=== PATIENT | female | born 1940 | race Caucasian/White ===

== ENCOUNTER → 2016-11-27 | Outpatient (CLI) | payer OTHER ==
[~2016-11-27] MED LIST: ASPIRIN EC81 M1 PO; ASPIRIN325 PO; AUGMENTIN 500-1 EACH PO; CARDIZEM CD300 MG PO; CARTIA PO; COUMADIN 2.5MG2.5 M1 PO; COUMADIN 5 MG TA5 M1 PO; DILTIAZEM 24HR300 M1 PO; HYDROCHLOROTHIA25 M1 PO; KLOR-CON 10 ER10 MEQ PO; LANOXIN 0.250.25 M1 PO; LORTAB 5 MG/5001 TA1 PO; PLAVIX 75 MG TA75 MG PO; QUINAPRIL 20 MG20 MG PO; SIMVASTATIN40 MG PO
== END ==
LOC: RAD 09:35
DX: M47.896 Other spondylosis, lumbar region (principal); M51.36 Other intervertebral disc degeneration, lumbar region

== ENCOUNTER 2017-01-01 08:46 | Emergency (ER) | payer OTHER ==
[~2017-01-01] VITALS: Ht 162.6 cm; Wt 63.5 kg
[2017-01-01 09:12] LABS: HEMATOCRIT 49.9 % (37.0-47.0); HEMOGLOBIN 16.5 gm/dL (12.0-15.0); MCH 30.2 pg (26.0-34.0); MCV 91.5 fL (80.0-100.0); RBC 5.45 mil/uL (4.20-5.00); RDW 16.1 % (10.5-14.5)
[2017-01-01 09:29] LABS: APTT 32.1 Seconds (24.5-32.8); INR 2.1; PROTIME 20.1 Seconds (9.3-11.4)
[2017-01-01 10:42] VITALS: BP 132/85
== END 2017-01-01 10:43 | disposition home or self-care (01) ==
LOC: ER 08:46
PROVIDERS: Nurse Practitioner
DX: S20.211A Contusion of right front wall of thorax, initial encounter (principal); I10 Essential (primary) hypertension; I48.91 Unspecified atrial fibrillation; E78.5 Hyperlipidemia, unspecified; I25.10 Atherosclerotic heart disease of native coronary artery without angina pectoris; Z90.710 Acquired absence of both cervix and uterus; Z85.41 Personal history of malignant neoplasm of cervix uteri; W01.0XXA Fall on same level from slipping, tripping and stumbling without subsequent striking against object, initial encounter; Y93.89 Activity, other specified; Y92.480 Sidewalk as the place of occurrence of the external cause; Y99.8 Other external cause status

== ENCOUNTER → 2017-06-16 | Outpatient (CLI) | payer OTHER ==
[~2017-06-16] VITALS: Ht 170.2 cm; Wt 66.7 kg
[~2017-06-16] MED LIST changes: +ATORVASTATIN CA40 MG PO
--- NOTE | ~2017-06-16 | CRIT ---
[facility] [place] [address] CRITICAL CARE NOTE Name: MARIANELA CALLAWAY Room #: REG [facility].#: [id number] Admission: 06/16/17 Attend Phys: Romeo Kwok MD Discharge: Date of : 40 Report #: [id number] THIS REPORT FOR: //name// CC: Nino Simmons MD [facility] Romeo Kwok DATE OF SERVICE: 06/16/2017 DATE OF REGISTRATION: 06/16/2017 CHIEF COMPLAINT: Low back pain. HISTORY OF PRESENT ILLNESS: The patient is a samir 77-year-old I am seeing today at the request of Dr. Charbel Simmons. The patient is also followed by Dr. Nino Ortiz as primary care. Dr. Simmons suggest we might be able to help her with her low back difficulty. Over the last 3-4 years, she has had more and more trouble with her low back and difficulty standing upright. It is generally worse when she first gets up in the morning and even after a hot shower and walking, she has pain that she scores between 6 and 8/10. She gets her best relief when she simply lays flat in the bed or after she is out of a hot shower. Years ago, she tried chiropractic and she has had a previous epidural without much benefit, but it has been years. She denies any significant leg pain. She is on Coumadin for atrial fibrillation. MEDICATIONS: Diltiazem, potassium, hydrochlorothiazide, quinapril, atorvastatin, Coumadin, and aspirin. ALLERGIES: None. SHE DOES HAVE SOME SENSITIVITIES TO TRAMADOL, CODEINE AND HYDROCODONE, ALL OF WHICH CAUSE NAUSEA AND VOMITING. PAST MEDICAL AND SURGICAL HISTORY: Significant for rheumatic fever as a child. She has an atrial septal defect, which is noted about 7 years ago. She has atrial fibrillation. She had cervical cancer years ago and was treated with a hysterectomy. She believes it may have been as long as 50 years ago. She has had a cholecystectomy, right coronary artery stent, Amplatzer occluder for her atrial septal defect in 2010 and a stent placed in her right renal artery. SOCIAL HISTORY: She is , continues to smoke about half a pack a day and has done so for 50 years. She denies use of alcohol. She reports to me that she will probably continue smoking until she can no longer light up. I did discuss with her the risks of smoking. I am certain I am the first physician to do that with her. [address] [address] CRITICAL CARE NOTE Name: MARIANELA CALLAWAY Room #: REG [facility]#: [id number] Admission: 06/16/17 Attend Phys: Romeo Kwok MD Discharge: Date of : 40 Report #: [id number] REVIEW OF SYSTEMS: Completed and discussed with the patient. She describes some blurred visions, cataracts, fatigue, weakness, nausea and vomiting with pain pills, nocturia and dribbling, occasional wheezing, bleeding and bruising tendency and she does describe some numbness in the buttock region, which may be radicular numbness. Most of her problems, however, pain across the low back. PHYSICAL EXAMINATION: She is pleasant samir 77-year-old, alert and oriented without signs of confusion, disorientation or anxiety or dementia. She moves from sitting to standing position and does indeed have difficulty standing upright and straight. She walks with a stable gait. She does not appear to be a fall risk. She has pain with forward flexion, but more pain with back extension, lateral tilt and rotation. Pain is across the lumbosacral segment at the level of the iliac crest consistent with the L3-L4, L4-L5 and L5-S1 lumbar facets. It is bilaterally tender. There is no tenderness of the sacroiliac joints. Straight leg raising is negative for radicular symptoms. Sensation is intact. Deep tendon reflexes are absent at knees and ankle. Chest was clear without inspiratory or expiratory wheezing. Cardiac rhythm was irregularly irregular. IMAGING: X-rays show lumbar spondylosis throughout the lumbar spine. IMPRESSION: Lumbar spondylosis with axial back pain. No evidence of radiculopathy. RECOMMENDATION: I think she would benefit from some lumbar facet injections. I would suggest that we do a small amount of triamcinolone into the L3-L4, L4-L5 and L5-S1 facet joints as able. We can perform these under x-ray guidance. A small amount of local anesthetic can also be injected at that time on the medial branch nerves. I think this will be diagnostic. She might be a candidate down the road for radiofrequency ablation depending on how her targets anatomically appear on the x-ray. Success is decreased when these targets are poorly visualized. Followup visit is scheduled. The patient in a few days she is going to stop her Coumadin in anticipation of the injection. Questions were asked and answered. By: [id number] Romeo Kwok MD /nt
[2017-06-16 14:37] VITALS: BP 123/64
== END ==
LOC: PAIN 07:25
DX: M47.896 Other spondylosis, lumbar region (principal); Z88.6 Allergy status to analgesic agent; Z88.5 Allergy status to narcotic agent

== ENCOUNTER → 2017-06-19 | Outpatient (CLI) | payer OTHER ==
[~2017-06-19] VITALS: Ht 170.2 cm; Wt 66.8 kg
--- NOTE | ~2017-06-19 | HPC ---
[facility] [place] [address] PAIN MANAGEMENT CONSULTATION Name: CALLAWAYMARIANELA Room #: REG Lyndsey Suarez#: [id number] Admission: 06/19/17 Attend Phys: Romeo Kwok MD Discharge: Date of : 40 Report #: [id number] THIS REPORT FOR: //name// CC: Nino Kwok DATE OF SERVICE: 06/19/2017 Followup visit for lumbar spondylosis. The patient was seen just last week. She was on Coumadin and we required a preauthorization for her treatment. She has clear evidence of lumbar spondylitic changes across the lumbosacral spine and most of her pain is axial back pain. She has minimal symptoms of radiculopathy. She has an x-ray also which shows that there is a levorotoscoliosis in the lumbosacral region, which results in advanced degenerative changes. I have suggested facet injections today and medial branch nerve blocks and we will evaluate her response to these treatments. She may be a candidate for more aggressive facet treatments. Radiofrequency was mentioned at her last visit. We have also had patients who have responded favorably to epidural injections for this condition. Our plan is to inject the three lowest facet joints today with triamcinolone and see her back in the clinic. I would not hesitate to perform an epidural injection if she does not respond favorably to facet based treatments. Medical history, medication, allergies were all reviewed from her visit just one week ago. There have been no changes. PHYSICAL EXAMINATION: Today, blood pressure 104/74, heart rate 84 and respirations 16. She is afebrile. She moves slowly from sitting to standing and has difficulty straightening up. She has pain across her low back and localized tenderness. Pain is increased with back extension. She has no leg pain. Pain today is at the level of the iliac crest and below. She has tenderness bilaterally. 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 RECOMMENDATION: Facet injections at L3-L4, L4-L5 and L5-S1 bilaterally under fluoroscopic guidance. PROCEDURE: After informed consent, she was taken to the fluoroscopic suite, placed prone, skin prepped with ChloraPrep. Skin was first anesthetized on the left overlying the above-mentioned joints. Skin was anesthetized with 1% [address] [address] PAIN MANAGEMENT CONSULTATION Name: MARIANELA CALLAWAY Room #: REG DERRICK Suarez#: [id number] Admission: 06/19/17 Attend Phys: Romeo wKok MD Discharge: Date of : 40 Report #: [id number] lidocaine and then 25-gauge 3-1/2 inch needles were advanced into the joints at each of the levels described. After negative aspiration, I injected each joint with 1 mL of 0.5% bupivacaine mixed with 10 mg of triamcinolone. She tolerated the injections well. C-arm was moved to the right and mirror image injections were performed at that side. A total of 6 injections were performed with a total of 60 mg of triamcinolone. She tolerated the procedure well. Pain was reduced only by about 20% in the recovery room. We will see her back in 2-4 weeks and we will consider the possibility of an epidural injection if not improved. By: [id number] Romeo Kwok MD /nt
[2017-06-19 14:35] LABS: INR 1.1; PROTIME 11.4 Seconds (9.3-11.4)
[2017-06-19 14:44] VITALS: BP 104/74
== END | disposition home or self-care (01) ==
LOC: PAIN 07:25
PROVIDERS: Anesthesiology Pain Medicine
DX: M47.817 Spondylosis without myelopathy or radiculopathy, lumbosacral region (principal); M41.86 Other forms of scoliosis, lumbar region; M51.36 Other intervertebral disc degeneration, lumbar region; M46.96 Unspecified inflammatory spondylopathy, lumbar region; F17.210 Nicotine dependence, cigarettes, uncomplicated; Z79.01 Long term (current) use of anticoagulants; Z79.82 Long term (current) use of aspirin; Z79.899 Other long term (current) drug therapy

== ENCOUNTER 2017-07-30 10:00 | Inpatient (IN) | payer OTHER ==
[~2017-07-30] VITALS: Ht 170.2 cm; Wt 64.0 kg
--- NOTE | ~2017-07-30 | D ---
[facility] [place] [address] DISCHARGE SUMMARY Name: CALLAWAYMARIANELA TURK Room #: 450-P [facility] IN ..#: [id number] Admission: 07/30/17 Attend Phys: George Daniels MD Discharge: 08/05/17 Date of : 40 Report #: [id number] THIS REPORT FOR: //name// CC: Davonte Daniels DATE OF SERVICE: 08/05/2017 FINAL DIAGNOSES: 1. Clostridium difficile colitis. 2. Hypertension. 3. Atrial fibrillation. HOSPITAL COURSE: The patient was admitted with abdominal pain and diarrhea and CT revealed diffuse colitis. Stool studies were positive for C. diff. She was placed on vancomycin. She had slow improvement and recovery. A stool culture was also obtained, which was positive for Campylobacter. It was unclear etiology. She had no predisposing factors. ID Service elected to treat her with Zithromax to finish a 5-day treatment. Gradually, her abdominal symptoms resolved, her diarrhea resolved and she was having formed stools by the time of discharge. PHYSICAL EXAMINATION: GENERAL: On the day of discharge, she was awake and alert. VITAL SIGNS: Stable. LUNGS: Clear. HEART: Regular. ABDOMEN: Soft. Normoactive bowel sounds. EXTREMITIES: No edema. DISPOSITION: She will be discharged to home with diet and activity as tolerated; resume all home medications, with the exception of holding hydrochlorothiazide and potassium for now due to hypokalemia and mild hypotension on admit. She will stay on vancomycin for 14 days and to follow up in the office for further instructions on continued slow taper. She will also need a followup with outpatient appointment with Dr. Valerio regarding the diverticulitis from last admission. <ELECTRONICALLY SIGNED> By: George Daniels MD 08/07/17 1028 0956 1039 George Daniels MD /nt
--- NOTE | ~2017-07-30 | EKG ---
[address] [place] [place] [address] ELECTROCARDIOGRAM REPORT Name: MARIANELA CALLAWAY Room #: 416-P [facility] [place] ..#: [id number] Admission: 07/30/17 Attend Phys: George Daniels MD Discharge: Date of : 40 Report #: [id number] THIS REPORT FOR: //name// [facility] ED Test Date: 2017-07-30 Test Time: 10:19:18 Pat Name: MARIANELA CALLAWAY Department: Room: Gender: F Golf [employer]: MACI : 1940 Requested By: Dedrick Mcleod Order Number: [id number] MD: Bharath Tyler Measurements Intervals Vidal Rate: 117 P: RI: QRS: 101 QRSD: 102 T: 33 QT: 325 QTc: 454 Interpretive Statements Atrial fibrillation Left posterior fascicular block Borderline low voltage, extremity leads Minimal ST depression, lateral leads Compared to ECG 07/04/2017 11:58:02 Left posterior fascicular block now present ST (T wave) deviation now present Right-axis deviation no longer present Electronically Signed On 07-30-2017 16:56:37 CDT by Bharath Tyler [email or web address] <ELECTRONICALLY SIGNED> By: Bharath Tyler MD 07/30/17 1656 1019 1019 Bharath Tyler MD /EPI
--- NOTE | ~2017-07-30 | H ---
[facility] [place] [address] HISTORY AND PHYSICAL Name: MARIANELA CALLAWAY Room #: 416-P [facility] IN ..#: [id number] Admission: 07/30/17 Attend Phys: George Daniels MD Discharge: Date of : 40 Report #: [id number] THIS REPORT FOR: //name// CC: Davonte Daniels DATE OF SERVICE: 07/30/2017 CHIEF COMPLAINT: Abdominal pain and diarrhea. HISTORY OF PRESENT ILLNESS: The patient is a 77-year-old female who came back to the Emergency Room with a 3-day history of abdominal pain and diarrhea. She has had multiple loose watery stools, some with a foul odor, for the last few days. She has had crampy waves of abdominal pain in the lower quadrant and sometimes into the left flank. She has had no nausea, vomiting or fever. She was hospitalized about a month ago for diverticular abscess and received Cipro and Flagyl at that time. She said upon completion of that round of antibiotics that her abdominal symptoms resolved and she was feeling fairly well. These new symptoms began about 3 days ago. PAST MEDICAL HISTORY: Atrial fibrillation, chronic Coumadin use, hypertension, history of atrial septal defect, lumbar spinal stenosis, cervical cancer, coronary artery disease with a history of right coronary stent. PAST SURGICAL HISTORY: She has had hysterectomy, left femur fracture repair. FAMILY HISTORY: Noncontributory. SOCIAL HISTORY: Some tobacco use. No chronic alcohol use. ALLERGIES: TRAMADOL. MEDICATIONS: Aspirin, hydrochlorothiazide, Cardizem-CD, Accupril, potassium, Coumadin 4 mg, Lipitor. REVIEW OF SYSTEMS: She denies headache, chest pain, shortness of breath, dysuria, myalgias, without a syncope or fall. OBJECTIVE: VITAL SIGNS: Temperature 37.2, pulse 111, respirations 21, blood pressure 130/80, O2 sat 98% on room air. GENERAL: She is awake and alert, in no distress. HEAD AND NECK: Unremarkable. LUNGS: Clear. HEART: Irregular. ABDOMEN: Soft, protuberant, scattered bowel sounds. Slightly tender to [facility] [address] [place] [address] HISTORY AND PHYSICAL Name: ANA MARIA CALLAWAYN Cam Room #: 416-P [facility].#: [id number] Admission: 07/30/17 Attend Phys: George Daniels MD Discharge: Date of : 40 Report #: [id number] palpation in left flank. No rebound or guarding. EXTREMITIES: No cyanosis, clubbing or edema. NEUROLOGIC: Intact. LABORATORY DATA: Reviewed. White count is normal. CT of the abdomen reveals colonic wall thickening suggesting colitis. 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 There is a diverticulum in the sigmoid colon that is similar to prior study and an indeterminate left lobe hepatic lesion. ASSESSMENT: 1. Acute colitis. 2. Diverticulosis. 3. Chronic atrial fibrillation. 4. Chronic anticoagulation with Coumadin. PLAN: Working diagnosis at this point is to rule out Clostridium difficile colitis and treatment will be focused on Flagyl and vancomycin. Bowel rest tonight with clear liquids, IV fluid, supportive measures and advance as tolerated. <ELECTRONICALLY SIGNED> By: George Daniels MD 07/31/17 1110 1434 1550 George Daniels MD /nt
[~2017-07-30 10:00] MED LIST changes: +CIPRO500 MG PO; +FLAGYL500 MG PO
[2017-07-30 10:09] VITALS: BP 116/44
[2017-07-30 10:37] LABS: ABSOLUTE NEUTROPHILS 6.9 thou/uL (1.4-8.2); BASOPHILS 0.5 % (0.0-2.0); EOSINOPHILS 0.3 % (0.0-3.0); HEMATOCRIT 45.6 % (37.0-47.0); HEMOGLOBIN 15.5 gm/dL (12.0-15.0); LYMPHOCYTES 7.9 % (24.0-44.0); MCH 31.5 pg (26.0-34.0); MCHC 33.9 g/dL (28.0-37.0); MCV 92.8 fL (80.0-100.0); MONOCYTES 9.9 % (1.0-8.0); PLATELET COUNT 184 thou/uL (150-400); POLYS 81.4 % (36.0-66.0); RBC 4.92 mil/uL (4.20-5.00); RDW 15.9 % (10.5-14.5); WBC 8.5 thou/uL (4.0-11.0)
[2017-07-30 10:44] LABS: ANION GAP 8 mmol/L (7-16); BUN 10 mg/dL (7-18); CALCIUM 8.8 mg/dL (8.5-10.1); CHLORIDE 100 mmol/L (98-107); CO2 26 mmol/L (21-32); CREATININE 0.9 mg/dL (0.6-1.0); GLUCOSE 98 mg/dL (74-106); POTASSIUM 3.3 mmol/L (3.5-5.1); SODIUM 134 mmol/L (136-145)
[2017-07-30 10:53] LABS: ALBUMIN 2.8 g/dL (3.4-5.0); DIRECT BILIRUBIN 0.3 mg/dL (<0.1-0.3); LIPASE 135 U/L (73-393); SGOT 21 U/L (15-37); SGPT 26 U/L (30-65); TOTAL PROTEIN 6.5 g/dL (6.4-8.2); TROPONIN-I < 0.04 ng/mL (<0.06)
[2017-07-30 12:02] LABS: URINE BILIRUBIN NEGATIVE (Negative); URINE BLOOD 1+ (Negative); URINE CLARITY SL CLOUDY; URINE COLOR YELLOW; URINE GLUCOSE-RANDOM* NEGATIVE (Negative); URINE KETONES TRACE (Negative); URINE LEUKOCYTES NEGATIVE (Negative); URINE NITRITE NEGATIVE (Negative); URINE PROTEIN (DIPSTICK) NEGATIVE (Negative); URINE UROBILINOGEN 0.2 E.U./dl (0.2-1.0)
[2017-07-30 12:44] LABS: CASTS None Seen /LPF (None Seen); CRYSTALS None Seen /LPF (None Seen); SQUAMOUS >10 Many /LPF (0-3)
[2017-07-30 12:45] LABS: URINE RBC 0-2 Rare /HPF (0-2); URINE WBC 0-5 Rare /HPF (0-5)
[2017-07-30 12:46] LABS: BACTERIA 1-9 Few /HPF (None Seen)
[2017-07-30 13:29] VITALS: BP 130/80
[2017-07-30 14:03] LABS: APTT 32.9 Seconds (24.5-32.8); INR 1.6; PROTIME 15.9 Seconds (9.3-11.4)
[2017-07-30 14:44] VITALS: BP 121/77
[2017-07-30 14:48] VITALS: BP 138/94
[2017-07-30 20:13] VITALS: BP 130/86
[2017-07-30 23:32] VITALS: BP 128/84
[2017-07-31 04:04] VITALS: BP 129/86
[2017-07-31 06:07] LABS: HEMATOCRIT 42.1 % (37.0-47.0); HEMOGLOBIN 14.1 gm/dL (12.0-15.0); MCH 31.4 pg (26.0-34.0); MCHC 33.5 g/dL (28.0-37.0); MCV 93.7 fL (80.0-100.0); RBC 4.49 mil/uL (4.20-5.00); RDW 16.1 % (10.5-14.5); WBC 7.7 thou/uL (4.0-11.0)
[2017-07-31 06:18] LABS: INR 1.9; PROTIME 19.5 Seconds (9.3-11.4)
[2017-07-31 06:19] LABS: CALCIUM 8.2 mg/dL (8.5-10.1); CREATININE 0.6 mg/dL (0.6-1.0); POTASSIUM 3.2 mmol/L (3.5-5.1)
[2017-07-31 08:22] VITALS: BP 131/93
[2017-07-31 16:00] VITALS: BP 107/73
[2017-07-31 20:36] VITALS: BP 90/55
[2017-08-01 05:24] VITALS: BP 116/80
[2017-08-01 06:53] LABS: CALCIUM 8.5 mg/dL (8.5-10.1); CREATININE 0.6 mg/dL (0.6-1.0); POTASSIUM 4.5 mmol/L (3.5-5.1)
[2017-08-01 07:38] VITALS: BP 123/84
[2017-08-01 15:30] LABS: INR 2.3; PROTIME 23.5 Seconds (9.3-11.4)
[2017-08-01 16:43] VITALS: BP 108/74
[2017-08-01 21:22] VITALS: BP 99/63
[2017-08-02 05:31] VITALS: BP 130/80
[2017-08-02 07:20] VITALS: BP 130/76
[2017-08-02 14:56] LABS: INR 2.8; PROTIME 27.9 Seconds (9.3-11.4)
[2017-08-02 19:21] VITALS: BP 113/60
[2017-08-03 03:40] VITALS: BP 137/93
[2017-08-03 08:36] VITALS: BP 132/75
[2017-08-03 14:59] LABS: INR 3.5; PROTIME 34.8 Seconds (9.3-11.4)
[2017-08-03 16:05] VITALS: BP 132/75
[2017-08-03 19:55] VITALS: BP 107/61
[2017-08-04 03:57] VITALS: BP 140/82
[2017-08-04 04:05] LABS: ABSOLUTE NEUTROPHILS 5.2 thou/uL (1.4-8.2); BASOPHILS 0.6 % (0.0-2.0); EOSINOPHILS 1.2 % (0.0-3.0); HEMATOCRIT 40.5 % (37.0-47.0); HEMOGLOBIN 13.5 gm/dL (12.0-15.0); LYMPHOCYTES 16.5 % (24.0-44.0); MCH 31.4 pg (26.0-34.0); MCHC 33.2 g/dL (28.0-37.0); MCV 94.6 fL (80.0-100.0); MONOCYTES 10.8 % (1.0-8.0); PLATELET COUNT 211 thou/uL (150-400); POLYS 70.9 % (36.0-66.0); RBC 4.29 mil/uL (4.20-5.00); RDW 16.3 % (10.5-14.5); WBC 7.4 thou/uL (4.0-11.0)
[2017-08-04 04:15] LABS: INR 3.6; PROTIME 36.3 Seconds (9.3-11.4)
[2017-08-04 04:22] LABS: CALCIUM 8.5 mg/dL (8.5-10.1); CREATININE 0.7 mg/dL (0.6-1.0); MAGNESIUM 1.6 mg/dL (1.8-2.4); POTASSIUM 4.5 mmol/L (3.5-5.1)
[2017-08-04 08:00] VITALS: BP 141/93
[2017-08-04 16:00] VITALS: BP 99/58
[2017-08-04 19:33] VITALS: BP 100/63
[2017-08-05 04:56] VITALS: BP 116/75
[2017-08-05 08:00] VITALS: BP 118/77
[2017-08-05] MEDS ORDERED: VANCOMYCIN HCL10 GM PO (09:51)
[2017-08-05] MEDS ORDERED: AZITHROMYCIN 2250 MG PO (09:51)
[2017-08-05] MEDS ORDERED: PROBIOTIC1 EAC1 PO (09:52)
[2017-08-05 09:57] VITALS: BP 118/77
== END 2017-08-05 13:43 | disposition home or self-care (01) | DRG 371 ==
LOC: ER 10:00 → 4N 13:21 → 4W 08-02 14:16 → ENTRNSPT 08-05 13:02 → 4W 08-05 13:43
PROVIDERS: Emergency Medicine; Internal Medicine Geriatric Medicine; Nurse Practitioner
DX: A04.71 Enterocolitis due to Clostridium difficile, recurrent (principal); E43 Unspecified severe protein-calorie malnutrition; A04.5 Campylobacter enteritis; I10 Essential (primary) hypertension; I48.2 Chronic atrial fibrillation; K57.90 Diverticulosis of intestine, part unspecified, without perforation or abscess without bleeding; E78.5 Hyperlipidemia, unspecified; F17.210 Nicotine dependence, cigarettes, uncomplicated; E87.6 Hypokalemia; I25.10 Atherosclerotic heart disease of native coronary artery without angina pectoris; I95.9 Hypotension, unspecified; J44.9 Chronic obstructive pulmonary disease, unspecified; Z95.5 Presence of coronary angioplasty implant and graft; Z90.710 Acquired absence of both cervix and uterus; Z88.8 Allergy status to other drugs, medicaments and biological substances; Z79.01 Long term (current) use of anticoagulants; Z85.41 Personal history of malignant neoplasm of cervix uteri; Z79.899 Other long term (current) drug therapy; Z79.82 Long term (current) use of aspirin
CPT/HCPCS: 10047; 10790

== ENCOUNTER → 2018-11-12 | Outpatient (CLI) | payer OTHER ==
[~2018-11-12] VITALS: Ht 170.2 cm; Wt 64.4 kg
[~2018-11-12] MED LIST changes: +AZITHROMYCIN 2250 MG PO; +HYDROCHLOROTHIA25 M2 PO; +PROBIOTIC1 EAC1 PO; +VANCOMYCIN HCL10 GM PO
--- NOTE | ~2018-11-12 | HPC ---
[facility] [place] [address] PAIN MANAGEMENT CONSULTATION Name: CALLAWAYMARIANELA Room #: REG [facility].#: [id number] Admission: 11/12/18 Attend Phys: Romeo Kwok MD Discharge: Date of : 40 Report #: [id number] THIS REPORT FOR: //name// CC: Davonte Kwok DATE OF SERVICE: 11/12/2018 She is a 78-year-old female sent to us by Dr. Nino Ortiz. She has previously been seen in our pain clinic and has been treated for low back pain related to spondylosis. She received facet injections at L3-L4, L4-L5 and L5 bilaterally under fluoroscopic guidance. Today, she reports that she had nearly a year of pain relief following those injections. That is an outstanding response. She remained active throughout that period of time. She is here today hopeful that we might be able to repeat the injections. She is on Coumadin plus we will need to undergo preauthorization requirements. Today, pain is similar to the pain experienced before. It is in the low back with only occasional radiation in the outer part of her leg. She describes it as a constant, burning, aching, gnawing sensation. It is worsened by walking or standing. She gets some relief when she lies down and a hot shower. She reports 80% improvement from her last injection. PQRS REVIEW: 1. History of spondyloarthritis. 2. BMI 22.2. 3. Vital signs, blood pressure 130/92, heart rate 80, respirations 16, O2 sat 100. 4. Pain intensity 7-8/10. 5. She denies dizziness and needs no help walking or standing. She has not fallen in the last 3 months. 6. She is on Coumadin. 7. She is on antihypertensive medication. Medications reviewed and reconciled. 8. She takes no opioids. 9. She did complete an opioid risk tool, which she scored a perfect 0. 10. Functional assessment tool is 50/70 which suggests that her pain is significantly interfering with activities of daily living. 11. She is a current everyday smoker and has smoked for over 50 years. We discussed the impact of smoking on chronic pain and the recommendations of quitting. PHYSICAL EXAMINATION: GENERAL: She is pleasant, alert and oriented. No signs of dementia. [address] [address] PAIN MANAGEMENT CONSULTATION Name: ANA MARIA CALLAWAYN Cam Room #: REG [facility].#: [id number] Admission: 11/12/18 Attend Phys: Romeo Kwok MD Discharge: Date of : 40 Report #: [id number] VITAL SIGNS: She is 5 feet 7 inches, 142 pounds, BMI is 22. Her blood pressure 130/92, heart rate is 80. NEUROLOTGIC: She independently moves from sitting to standing position. She has marked pain with back extension. It reproduces pain across the lumbosacral segment and some pain radiating into the hip. Straight leg raising is bilaterally negative. CHEST: Clear to auscultation. CARDIAC: Rhythm is irregularly irregular. ABDOMEN: Soft. There is no organomegaly. IMPRESSION: Low back pain with spondylosis. She had an excellent response over a year ago to facet injections bilaterally at the lowest 3 levels. I have recommended we repeat the same. She will discontinue her Coumadin for 5 days and we will seek preauthorization. I plan to see her back in the pain clinic sometime next week for facet injections. By: [id number] Romeo Kwok MD /nt
[2018-11-12 09:52] VITALS: BP 130/92
--- NOTE | 2018-11-12 10:01 | NUR ---
Pain Clinic Assessment: 1. History of Osteoarthritis: NONE History of Rheumatoid Arthritis: NONE 2. Height: 5 ft. 7 in. 170.2 cm. Weight: 142.0 lb. oz. 64.411 kg. Patient's BMI: 22.2 3. Vital Signs: BP: 130/92 Pulse: 80 Resp: 16 Temp: 02 Sat: 100 ECG Mon: 4. Pain Intensity: 7-8 5. Fall Risk: Dizziness: N Needs help standing or walking: N Fallen in the last 3 months: N Fall risk comments: 6. Patient on Blood Thinner: Warfarin (Coumadin) 7. History of Hypertension: Y 8. Opioid Therapy greater than 6 weeks: N Opiate Contract Signed: 9. Risk Assessment Tool Provided: 0-LOW RISK 10. Functional Assessment Tool: 50/70 11. Recreational Drug Use: Never Drug Type: Tobacco Use: Current Every Day Smoker Tobacco Type: Cigarettes Amount or Packs/day: 10 How Many Years: 50 Alcohol Use: No Frequency: Quant:
== END ==
LOC: PAIN 06:51
DX: M47.816 Spondylosis without myelopathy or radiculopathy, lumbar region (principal)

== ENCOUNTER → 2018-11-26 | Outpatient (CLI) | payer OTHER ==
[~2018-11-26] VITALS: Ht 170.2 cm; Wt 64.9 kg
--- NOTE | ~2018-11-26 | HPC ---
[facility] [place] [address] PAIN MANAGEMENT CONSULTATION Name: ANA MARIA CALLAWAYN Cam [id number] Admission: 11/26/18 ������������������ Attend Phys: Romeo Kwok MD Discharge: ������������������ Date of : 40 Report #: [id number] THIS REPORT FOR: //name// CC: Nino Kwok DATE OF SERVICE: 11/26/2018 Followup visit for lumbar spondylosis. The patient was seen in assessment just a few weeks ago. At that time, we were not able to perform facet injections due to her use of Coumadin. She is here today off Coumadin with an INR of 1.2 for injections. She had nearly 80% improvement after her last injection. There have been no changes in her physical exam, PQRS review or other features since her last visit. She has had no hospitalizations, no change in medications other than discontinuation of her warfarin. IMPRESSION: Low back pain with spondylosis. PROCEDURE: Bilateral L3-L4, L4-L5 and L5-S1 facet injections under fluoroscopic guidance. DESCRIPTION OF PROCEDURE: She was taken to fluoroscopic suite. She was placed prone, skin was prepped with ChloraPrep. Skin anesthetized first on the left. Using biplanar fluoroscopic views, I advanced a 22-gauge spinal needle into position at the posterior inferior recess of each of the above-mentioned joints. After negative aspiration, I injected each joint with 0.5 mL of 0.5% bupivacaine mixed with 2 mg of dexamethasone. Needle was removed at each level. She was allowed to reposition the C-arm, was moved to the right. Using again biplanar C-arm views, I advanced the needles gently into position. Once again at L3-L4, L4-L5, L5-S1 facet joint. After negative aspiration, I injected each joint with the same solution 0.5% bupivacaine mixed with 2 mg triamcinolone injected at each level. She tolerated the procedure well. Pain was markedly reduced at discharge. Followup visit planned as needed. No medications were ordered for the patient. ��������������������������������������������� ���������������������������������������� By: ��������������������������������������������� 1815 0004 Romeo Kwok MD /nt
[2018-11-26 13:33] LABS: PROTIME 10.7 Seconds (9.3-11.4)
[2018-11-26 13:49] VITALS: BP 108/79
--- NOTE | 2018-11-26 13:58 | NUR ---
Pain Clinic Assessment: 1. History of Osteoarthritis: BACK History of Rheumatoid Arthritis: NONE 2. Height: 5 ft. 7 in. 170.2 cm. Weight: 143.0 lb. oz. 64.864 kg. Patient's BMI: 22.4 3. Vital Signs: BP: 108/79 Pulse: 89 Resp: 14 Temp: 02 Sat: 100 ECG Mon: 4. Pain Intensity: 8-9 5. Fall Risk: Dizziness: N Needs help standing or walking: N Fallen in the last 3 months: N Fall risk comments: 6. Patient on Blood Thinner: Warfarin (Coumadin) 7. History of Hypertension: Y 8. Opioid Therapy greater than 6 weeks: N Opiate Contract Signed: 9. Risk Assessment Tool Provided: 0-LOW RISK 10. Functional Assessment Tool: 50/70 11. Recreational Drug Use: Never Drug Type: Tobacco Use: Current Every Day Smoker Tobacco Type: Cigarettes Amount or Packs/day: 1/2 PACK How Many Years: Alcohol Use: No Frequency: Quant:
== END | disposition home or self-care (01) ==
LOC: PAIN 06:53
PROVIDERS: Anesthesiology Pain Medicine
DX: M47.817 Spondylosis without myelopathy or radiculopathy, lumbosacral region (principal); M54.5 Low back pain; I10 Essential (primary) hypertension; F17.210 Nicotine dependence, cigarettes, uncomplicated; Z79.01 Long term (current) use of anticoagulants; Z79.899 Other long term (current) drug therapy; Z88.8 Allergy status to other drugs, medicaments and biological substances; Z79.82 Long term (current) use of aspirin

== ENCOUNTER → 2019-01-12 | Outpatient (CLI) | payer OTHER ==
[~2019-01-12] MED LIST changes: +ANUSOL-HC25 MG RECTAL; +ONDANSETRON ODT8 MG PO
[2019-01-12 10:05] LABS: CALCIUM 9.3 mg/dL (8.5-10.1); CREATININE 0.8 mg/dL (0.6-1.0); POTASSIUM 3.7 mmol/L (3.5-5.1)
== END ==
LOC: CAT 09:14
PROVIDERS: Internal Medicine
DX: Z01.812 Encounter for preprocedural laboratory examination (principal); I72.3 Aneurysm of iliac artery; I71.4 Abdominal aortic aneurysm, without rupture; I25.10 Atherosclerotic heart disease of native coronary artery without angina pectoris; M47.816 Spondylosis without myelopathy or radiculopathy, lumbar region; M41.85 Other forms of scoliosis, thoracolumbar region; K76.89 Other specified diseases of liver; K57.30 Diverticulosis of large intestine without perforation or abscess without bleeding; N28.1 Cyst of kidney, acquired; I11.9 Hypertensive heart disease without heart failure; Z90.49 Acquired absence of other specified parts of digestive tract; Z90.710 Acquired absence of both cervix and uterus

== ENCOUNTER → 2019-01-25 | Outpatient (CLI) | payer OTHER ==
[~2019-01-25] VITALS: Ht 170.2 cm; Wt 65.8 kg
[~2019-01-25] MED LIST changes: +ANUSOL-HC30 GM TOP; -ATORVASTATIN CA40 MG PO; +LIPITOR40 MG PO; +PROBIOTIC1 EAC7 PO; +WARFARIN SODIUM4 MG PO
[2019-01-25 07:43] VITALS: BP 166/89
[2019-01-25 07:59] LABS: HEMATOCRIT 46.4 % (37.0-47.0); HEMOGLOBIN 15.3 gm/dL (12.0-15.0); MCH 30.9 pg (26.0-34.0); MCHC 33.1 g/dL (28.0-37.0); MCV 93.4 fL (80.0-100.0); RBC 4.97 mil/uL (4.20-5.00); RDW 16.4 % (10.5-14.5); WBC 6.4 thou/uL (4.0-11.0)
[2019-01-25 08:08] LABS: CALCIUM 9.8 mg/dL (8.5-10.1); CREATININE 0.9 mg/dL (0.6-1.0); POTASSIUM 3.4 mmol/L (3.5-5.1)
[2019-01-25 08:12] LABS: INR 1.1
--- NOTE | 2019-01-25 16:18 | CATHLAB ---
[facility] [address] [place] [address] INVASIVE PROCEDURE REPORT Name: MARIANELA CALLAWAY Room #: [facility] [id number] Admission: 01/25/19 Attend Phys: Charbel Simmons, Discharge: Date of : 40 Report #: [id number] THIS REPORT FOR: //name// APPROVED REPORT Study performed: 01/25/2019 08:08:24 Patient Details Patient Status: Out-Patient Room #: The patient is a 78 year-old female Event Personnel Charbel Simmons Can Doffer, Clive Barger Monitor, Jina Schaefer RN RN, Kristy Yeager Monitor, Ana Wang RT(R)() Scrub, Merari Sutton RTR Scrub Procedures Performed Art Access - R femoral artery* 91315 Initial Mod Sed Same Phys/QHP Gr5y [id number] 86425 Mod Sed Same Phys/QHP Ea 004218 Left Heart Cath w/or w/o Coronaries [id number] [facility] Hemostasis w/ Mynx Indication Chest pain Procedure Narrative The patient was brought electively to the Cardiac Catheterization Laboratory and was prepped and draped in a sterile manner. The Right Groin^ was infiltrated with 1% Lidocaine subcutaneous anesthesia. A PINNACLE 6FR Sheath #[id number] sheath was inserted into the RFA^. Coronary angiography was performed using coronary diagnostic catheters. The right coronary system was accessed and visualized with a JR 4 catheter. The left coronary system was accessed and visualized with a 6FR JL 4.5 #[id number] catheter. The left ventricle was accessed and visualized with a Pigtail catheter. Left ventricular/Aortic Valve gradient assessed via catheter pullback. Left ventriculogram was performed in JENNINGS projection. Closure device was deployed with a 6 Fr Mynx. The patient tolerated the procedure well and there were no complications associated with the procedure. There was no hematoma. Intraoperative Conscious Sedation Sedation start time: 08:13 Case end Time: 11:12 Fentanyl 100 mcg Versed [address] [address] INVASIVE PROCEDURE REPORT Name: CALLAWAYMARIANELA Room #: [facility]#: [id number] Admission: 01/25/19 Attend Phys: Charbel Simmons, Discharge: Date of : 40 Report #: [id number] Fluoro Time: 3.49 minutes Dose: DAP 2618.00 cGycm2 328 mGy Contrast Type and Amount: Omnipaque 110 ml Coronary Angiography The patient's coronary anatomy is right dominant. Diagnostic Cath Left Main Normal left main LAD Minimal 10-20% mid LAD plaquing Diagonal 1 Normal first diagonal branch Diagonal 2 Normal, second diagonal branch Circumflex Moderate size nondominant circumflex comprised of a single marginal branch OM1 Minimal proximal OM1 plaquing Right Coronary Donminant right coronary with widely patent mid vessel stent. 20% instrastent plaquing R PDA 50% ostial posterior descending branch stenosis RPLV Normal posterior lateral branch Left Ventriculography The left ventricle is normal in size with normal contractility. The left ventricular ejection fraction is estimated to be 60-65%. Left ventricular wall motion abnormalities are not present. There is no mitral insufficiency. Hemodynamics The aortic pressure is 149/66 mmHg with a mean of 95 mmHg. The left ventricular pressure is 169/18 mmHg with a mean of mmHg. The left ventricular end diastolic pressure is 46 mmHg. PCI Technique Lesion Percutaneous coronary intervention was performed on the Common iliac. Conclusion 1. Normal global and regional left ventricular systolic function. Ejection fraction 65%. 2. Normal left main 3. Mild scattered nonocclusive plaquing. Right coronary dominant circulation. Recommendations [facility] [address] [place] [address] INVASIVE PROCEDURE REPORT Name: MARIANELA CALLAWAY Room #: [facility]#: [id number] Admission: 01/25/19 Attend Phys: Charbel Simmons, Discharge: Date of : 40 Report #: [id number] Smoking Cessation Aggressive Medical Therapy <ELECTRONICALLY SIGNED> By: Charbel Simmons MD, [facility] 01/25/19 1618 161 1618 Charbel Simmons MD, FACC /INF
--- NOTE | 2019-01-25 16:43 | EKG ---
[address] [address] ELECTROCARDIOGRAM REPORT Name: MARIANELA CALLAWAY Cam Room #: [facility]#: [id number] Admission: 01/25/19 Attend Phys: Charbel Simmons MD, Discharge: Date of : 40 Report #: [id number] THIS REPORT FOR: //name// [facility] Test Date: 2019-01-25 Test Time: 07:44:03 Pat Name: MARIANELA CALLAWAY Department: Room: Gender: F Protocol Officer: Danis FLORES : 1940 Requested By: Charbel Simmons Order Number: [id number] MD: Charbel Simmons Measurements Intervals [place] Rate: 86 P: MT: QRS: 93 QRSD: 111 T: 63 QT: 387 QTc: 463 Interpretive Statements Atrial fibrillation Right axis deviation Compared to ECG 07/30/2017 10:19:18 Premature ventricular complexes no longer present Electronically Signed On 01-25-2019 16:43:00 WATER CHEMIST by Charbel Simmons [email or web address] <ELECTRONICALLY SIGNED> By: Charbel Simmons MD, [facility] 01/25/19 1643 Charbel Simmons MD, [facility] /EPI
== END | disposition home or self-care (01) ==
LOC: CATH 07:03
PROVIDERS: Internal Medicine
DX: I25.10 Atherosclerotic heart disease of native coronary artery without angina pectoris (principal); R07.9 Chest pain, unspecified; I72.3 Aneurysm of iliac artery; I71.4 Abdominal aortic aneurysm, without rupture; I70.1 Atherosclerosis of renal artery; I10 Essential (primary) hypertension; E78.5 Hyperlipidemia, unspecified; I48.91 Unspecified atrial fibrillation; I73.9 Peripheral vascular disease, unspecified; F17.210 Nicotine dependence, cigarettes, uncomplicated; Z90.710 Acquired absence of both cervix and uterus; Z98.890 Other specified postprocedural states; Z85.41 Personal history of malignant neoplasm of cervix uteri; Z79.01 Long term (current) use of anticoagulants; Z88.8 Allergy status to other drugs, medicaments and biological substances; Z79.82 Long term (current) use of aspirin

== ENCOUNTER 2019-01-26 08:53 | Emergency (ER) | payer OTHER ==
[~2019-01-26] VITALS: Ht 170.2 cm; Wt 64.9 kg
[~2019-01-26 08:53] MED LIST changes: -ANUSOL-HC25 MG RECTAL; -ANUSOL-HC30 GM TOP; -ONDANSETRON ODT8 MG PO; -PROBIOTIC1 EAC7 PO; -WARFARIN SODIUM4 MG PO
[2019-01-26 09:32] LABS: HEMATOCRIT 43.9 % (37.0-47.0); HEMOGLOBIN 14.7 gm/dL (12.0-15.0); MCHC 33.5 g/dL (28.0-37.0); MCV 92.6 fL (80.0-100.0); PLATELET COUNT 180 thou/uL (150-400); RBC 4.74 mil/uL (4.20-5.00); RDW 16.3 % (10.5-14.5); WBC 10.4 thou/uL (4.0-11.0)
[2019-01-26 09:38] LABS: CALCIUM 9.9 mg/dL (8.5-10.1); CREATININE 0.9 mg/dL (0.6-1.0); POTASSIUM 3.5 mmol/L (3.5-5.1)
[2019-01-26 09:45] LABS: ALBUMIN 3.2 g/dL (3.4-5.0); TOTAL BILIRUBIN 1.9 mg/dL (<0.1-1.0); TOTAL PROTEIN 6.6 g/dL (6.4-8.2)
[2019-01-26 10:03] LABS: APTT 27.6 Seconds (24.5-32.8); PROTIME 10.7 Seconds (9.3-11.4)
[2019-01-26 10:58] LABS: ABSOLUTE NEUTROPHILS 8.5 thou/uL (1.4-8.2); ATYPICAL LYMPHS 1 %; LARGE PLATELETS OCCASIONAL
[2019-01-26] MEDS ORDERED: ONDANSETRON ODT8 MG PO (11:59)
[2019-01-26] MEDS ORDERED: ANUSOL-HC25 MG RECTAL (11:59)
[2019-01-26 12:28] VITALS: BP 145/84
[2019-02-02] MEDS ORDERED: ANUSOL-HC30 GM TOP (10:03)
[2019-02-02] MEDS ORDERED: PROBIOTIC1 EAC7 PO (10:04)
[2019-02-02] MEDS ORDERED: ANUSOL-HC25 MG RECTAL (10:04)
[2019-02-02] MEDS ORDERED: WARFARIN SODIUM4 MG PO (10:07)
== END 2019-01-26 12:29 | disposition home or self-care (01) ==
LOC: ER 08:53
PROVIDERS: Emergency Medicine
DX: K62.5 Hemorrhage of anus and rectum (principal); R11.2 Nausea with vomiting, unspecified; R19.7 Diarrhea, unspecified; E80.6 Other disorders of bilirubin metabolism; I73.9 Peripheral vascular disease, unspecified; I10 Essential (primary) hypertension; F17.210 Nicotine dependence, cigarettes, uncomplicated; Z85.41 Personal history of malignant neoplasm of cervix uteri; Z90.710 Acquired absence of both cervix and uterus; Z88.8 Allergy status to other drugs, medicaments and biological substances

== ENCOUNTER 2019-02-15 07:52 | Inpatient (IN) | payer OTHER ==
[2019-02-09 08:48] LABS: ABSOLUTE NEUTROPHILS 4.9 thou/uL (1.4-8.2); BASOPHILS 0.7 % (0.0-2.0); EOSINOPHILS 1.3 % (0.0-3.0); HEMATOCRIT 42.9 % (37.0-47.0); HEMOGLOBIN 14.1 gm/dL (12.0-15.0); LYMPHOCYTES 15.8 % (24.0-44.0); MCH 30.4 pg (26.0-34.0); MCHC 32.9 g/dL (28.0-37.0); MCV 92.5 fL (80.0-100.0); PLATELET COUNT 316 thou/uL (150-400); POLYS 72.2 % (36.0-66.0); RBC 4.64 mil/uL (4.20-5.00); RDW 15.9 % (10.5-14.5); WBC 6.8 thou/uL (4.0-11.0)
[2019-02-09 08:49] LABS: URINE BILIRUBIN NEGATIVE (Negative); URINE BLOOD 1+ (Negative); URINE CLARITY CLEAR; URINE COLOR YELLOW; URINE GLUCOSE-RANDOM* NEGATIVE (Negative); URINE KETONES NEGATIVE (Negative); URINE LEUKOCYTES-REFLEX NEGATIVE (Negative); URINE NITRITE-REFLEX NEGATIVE (Negative); URINE PROTEIN (DIPSTICK) NEGATIVE (Negative)
[2019-02-09 09:01] LABS: ALBUMIN 3.4 g/dL (3.4-5.0); CALCIUM 9.6 mg/dL (8.5-10.1); CREATININE 0.9 mg/dL (0.6-1.0); POTASSIUM 3.7 mmol/L (3.5-5.1); TOTAL BILIRUBIN 0.6 mg/dL (<0.1-1.0); TOTAL PROTEIN 6.9 g/dL (6.4-8.2)
[2019-02-09 09:07] LABS: APTT 38.9 Seconds (24.5-32.8); INR 2.6; PROTIME 26.8 Seconds (9.3-11.4)
[2019-02-09 09:16] LABS: CASTS None Seen /LPF (None Seen); SQUAMOUS 4-10 Moderate /LPF (0-3); URINE RBC 3-10 Few /HPF (0-2)
[2019-02-09 09:17] LABS: CRYSTALS None Seen /LPF (None Seen); URINE WBC-REFLEX 0-5 Rare /HPF (0-5)
[~2019-02-15] VITALS: Ht 170.2 cm; Wt 59.9 kg
[~2019-02-15 07:52] MED LIST changes: +ANUSOL-HC25 MG RECTAL; +ANUSOL-HC30 GM TOP; +ONDANSETRON ODT8 MG PO; +PROBIOTIC1 EAC7 PO; +WARFARIN SODIUM4 MG PO
--- NOTE | 2019-02-15 23:20 | NUR ---
PER DR. CHRISTIANSON THIS NUTRITIONAL SERVICES DIRECTOR INFORMED PT THAT HER CASE FOR TOMORROW WOULD BE CANCELED AND THAT CAITLIN WOULD REACH OUT TO HER TO RESCHEDULE.
[2019-02-25 11:15] LABS: URINE BILIRUBIN NEGATIVE (Negative); URINE BLOOD 1+ (Negative); URINE CLARITY CLEAR; URINE COLOR YELLOW; URINE GLUCOSE-RANDOM* NEGATIVE (Negative); URINE KETONES NEGATIVE (Negative); URINE LEUKOCYTES NEGATIVE (Negative); URINE NITRITE NEGATIVE (Negative); URINE PROTEIN (DIPSTICK) NEGATIVE (Negative); URINE SPECIFIC GRAVITY <= 1.005 (1.005-1.035); URINE UROBILINOGEN 0.2 E.U./dl (0.2-1.0)
[2019-02-25 11:22] LABS: SQUAMOUS 4-10 Moderate /LPF (0-3)
[2019-02-25 11:23] LABS: BACTERIA 1-9 Few /HPF (None Seen); CASTS None Seen /LPF (None Seen); CRYSTALS None Seen /LPF (None Seen); URINE RBC 0-2 Rare /HPF (0-2); URINE WBC None Seen /HPF (0-5)
[2019-02-25 11:34] LABS: APTT 27.5 Seconds (24.5-32.8); PROTIME 10.4 Seconds (9.3-11.4)
[2019-02-25 13:05] VITALS: BP 114/60
[2019-02-25 19:54] VITALS: BP 149/84
[2019-02-25 20:00] VITALS: BP 142/82
[2019-02-25 21:00] VITALS: BP 150/88
[2019-02-25 22:00] VITALS: BP 134/74
[2019-02-25 23:00] VITALS: BP 157/75
[2019-02-26] VITALS (12 sets, daily range): BP systolic 115–143; BP diastolic 47–77
[2019-02-26 05:03] LABS: MCHC 32.4 g/dL (28.0-37.0); MCV 92.7 fL (80.0-100.0); RBC 4.32 mil/uL (4.20-5.00); RDW 15.9 % (10.5-14.5); WBC 8.5 thou/uL (4.0-11.0)
[2019-02-26 05:05] LABS: CALCIUM 8.7 mg/dL (8.5-10.1); CREATININE 0.6 mg/dL (0.6-1.0); POTASSIUM 3.8 mmol/L (3.5-5.1)
--- NOTE | 2019-02-26 05:22 | NUR ---
AOX4. MEDICATED FOR PAIN RELIEF. ON CARDENE TITRATED TO KEEP BP LESS THAN 130 SYSTOLIC. AFEBRILE. VSS. URINE OUTPUT NOTED. BILATERAL GROIN SITE DRESSING C/D/I, NO NOTED BLEEDING OR HEMATOMA. PT PROGRESSING TOWARDS GOALS. WILL CONTINUE TO MONITOR.
[2019-02-26] MEDS ORDERED: WARFARIN SODIUM4 MG PO (07:39)
--- NOTE | 2019-02-26 09:37 | NUR ---
Nutrition: pt admitted S/P AAA stent/graft. RD consulted due to "weight change". Pt voices "not that much". weight loss then states "I haven't ate very well the past week, I've been stressed out". Voices good appetite at present, observed tolerating breakfast. Unable to voice UBW but possible 5% loss since last month per [facility] review. Pt is agreeable to Ensure at lunch today but states she is being disharged later today.
--- NOTE | 2019-02-26 12:16 | NUR ---
PT REPORT GIVEN TO PILAR MARSH TO ASSUME CARE. PT WALKED THE UNIT STABLE. VOIDED 400 CC OF OUTPUT. NO ISSUES OR CONCERNS NOTED. GROIN SITES BILATERAL DRY AND INTACT.
--- NOTE | 2019-02-26 13:55 | NUR ---
PT ADMITTED RLEATED TO AAA STENT AND GRAFT. CM REVIEWED CHART AND SPOKE WITH CARE TEAM. CM MET WITH PT AT BEDSIDE THIS DAY. PT IS A&O X4. CM ROLE INTRODCUED. PT INDICATED SHE LIVES IN AN INDEPENDENET LIVING APARTMENT AT THE [facility] WITH HER SPOUSE. 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 PT INDICATED SHE HAD HH A LONG TIME AGO BUT SHE DOESN'T FEEL SHE WILL NEED IT UPON DC THIS DAY. CARE TEAM INDICATED PT IS MEDICALLY STABLE TO RETURN HOME TO SELF CARE THIS DAY. PT'S DTR TO PROVIDE TRANSPORT HOME. NO OTHER CM INTERVENTION INDICATED. CASE CLOSED.
--- NOTE | 2019-03-02 00:12 | O ---
[facility] [place] [address] OPERATIVE REPORT Name: ANA MARIA CALLAWAYN Cam Room #: 245-P [facility] IN M.R.#: [id number] Admission: 02/25/19 Attend Phys: Naren Pedraza MD Discharge: 02/26/19 Date of : 40 Report #: [id number] THIS REPORT FOR: //name// CC: Davonte Pedraza DATE OF SERVICE: 02/25/2019 PREOPERATIVE DIAGNOSIS: Abdominal aortic aneurysm. POSTOPERATIVE DIAGNOSIS: Abdominal aortic aneurysm. OPERATION: Stent graft implant for abdominal aortic aneurysm with intraoperative arteriograms. SURGEON: Naren Pedraza MD and George Perales MD SAFETY ENGINEER: CHRISTINA Blanc. ANESTHESIA: General. INDICATIONS: The patient is a 78-year-old with an abdominal aortic aneurysm. The patient has had stents placed for peripheral arterial occlusive disease in the past and the aneurysm has been followed and is seen to grow. TECHNIQUE: After general anesthesia was established, incisions were made in both groins to expose the common femoral arteries. 10,000 units of heparin were given on each side and the artery was entered with the Amplatz needle followed by J wire and the 6-Latvian introducer sheath was placed through this, a long J-wire was placed and an exchange catheter was used to place a stiff Jeannette type wire. Over the Jeannette wire on each side, femoral cutdown was made and the large sheaths were placed for the [place] device. On the right side, the 12-Latvian sheath was placed for the contralateral limb and on the left side the 16-Latvian sheath was placed for the ipsilateral limb. Through the right side, a visceral catheter was used to gain entry into the renal artery for identification and through the left side, the main component was placed. A 23 x 12 mm x 18 cm device was placed and it was deployed. Arteriograms were taken to make sure our position was satisfactory. The initial deployment opened the contralateral gate and a visceral catheter was withdrawn and through the 12-Latvian sheath, a Glidewire was used to gain entry into the contralateral gate. This was exchanged for a stiff wire and pigtail catheter was used to make sure that we had indeed gained appropriate access. [facility] [address] [place] [address] OPERATIVE REPORT Name: MARIANELA CALLAWAY Room #: 245-P [facility] IN .R.#: [id number] Admission: 02/25/19 Attend Phys: Naren Pedraza MD Discharge: 02/26/19 Date of : 40 Report #: [id number] A retrograde arteriogram was taken through the 12-Latvian sheath in the right groin to identify the right hypogastric takeoff and based on this, a 14.5 mm x 12 cm contralateral limb was selected. This was deployed in the contralateral gate of the main body to land just above the hypogastric takeoff. Final deployment of the main component was taken and then the compliant balloon was placed up each side sequentially to fully dilate the graft proximally to set the active fixation and within the both limbs and through the right side through the contralateral gate. When all components of the device had been fully distended, the pigtail catheter was used to perform a final arteriogram. This showed some what we thought was subintimal dissection, but no extravasation. Satisfied that there was no leak, all of the devices were removed. The dilators were replaced into the sheaths and the sheaths were withdrawn, then the guidewires were withdrawn. On each side, the femoral artery was repaired with interrupted Prolene. Flow was reestablished. Protamine was given to reverse the heparin. Hemostasis was ascertained and the wound was closed in layers. The patient was taken to the recovery area in good condition having tolerated the procedure well. All counts reported as correct. <ELECTRONICALLY SIGNED> By: Naren Pedraza MD 03/02/19 0012 1719 1743 Naren Pedraza MD /nt
== END 2019-02-26 14:53 | disposition home or self-care (01) | DRG 269 ==
LOC: PRE 07:52 → TBA 02-25 10:30 → ICU 02-25 10:30 → PRE 02-25 10:52 → ICU 02-25 20:08 → ENTRNSPT 02-26 14:49 → EDTRNSPTSTS 02-26 14:50 → ICU 02-26 14:53
PROVIDERS: Internal Medicine; Physician Assistant; ADMIT Surgery Vascular Surgery
PROC: 04V03DZ Restriction of Abdominal Aorta with Intraluminal Device, Percutaneous Approach (ICD-10-PCS; principal; 2019-02-25)
PROC: B4181ZZ Fluoroscopy of Bilateral Renal Arteries using Low Osmolar Contrast (ICD-10-PCS; 2019-02-25)
DX: I71.4 Abdominal aortic aneurysm, without rupture (principal); I48.21 Permanent atrial fibrillation; D68.59 Other primary thrombophilia; I25.10 Atherosclerotic heart disease of native coronary artery without angina pectoris; J44.9 Chronic obstructive pulmonary disease, unspecified; I70.1 Atherosclerosis of renal artery; I72.3 Aneurysm of iliac artery; E78.5 Hyperlipidemia, unspecified; I73.9 Peripheral vascular disease, unspecified; F17.210 Nicotine dependence, cigarettes, uncomplicated; E78.00 Pure hypercholesterolemia, unspecified; I10 Essential (primary) hypertension; Z79.899 Other long term (current) drug therapy; Z88.8 Allergy status to other drugs, medicaments and biological substances; Z95.5 Presence of coronary angioplasty implant and graft; Z90.710 Acquired absence of both cervix and uterus
CPT/HCPCS: 10078; 47375; 50010; 50101; 50386; 50455; 51078; 51751; 54118; 56524; 56526; 56531; 56668; 56760; 57093; 62110; 62900; 70005

== ENCOUNTER → 2019-03-29 | Outpatient (CLI) | payer OTHER ==
[~2019-03-29] MED LIST changes: +COUMADIN 4 MG TA4 M1 PO
[2019-03-29 08:38] LABS: CREATININE 0.8 mg/dL (0.6-1.0)
== END ==
LOC: CAT 07:52
PROVIDERS: Nuclear Medicine Nuclear Cardiology
DX: I70.8 Atherosclerosis of other arteries (principal); K76.89 Other specified diseases of liver; E27.8 Other specified disorders of adrenal gland; N28.1 Cyst of kidney, acquired; Z95.828 Presence of other vascular implants and grafts

== ENCOUNTER 2019-04-13 05:51 | Inpatient (IN) | payer OTHER ==
[2019-04-05 11:06] LABS: ABSOLUTE NEUTROPHILS 4.8 thou/uL (1.4-8.2); BASOPHILS 0.7 % (0.0-2.0); EOSINOPHILS 2.5 % (0.0-3.0); HEMATOCRIT 44.2 % (37.0-47.0); HEMOGLOBIN 14.4 gm/dL (12.0-15.0); LYMPHOCYTES 18.8 % (24.0-44.0); MCH 30.4 pg (26.0-34.0); MCHC 32.6 g/dL (28.0-37.0); MCV 93.1 fL (80.0-100.0); MONOCYTES 9.3 % (1.0-8.0); PLATELET COUNT 259 thou/uL (150-400); POLYS 68.7 % (36.0-66.0); RBC 4.75 mil/uL (4.20-5.00); RDW 17.3 % (10.5-14.5); WBC 7.1 thou/uL (4.0-11.0)
[2019-04-05 11:07] LABS: URINE BILIRUBIN NEGATIVE (Negative); URINE BLOOD 2+ (Negative); URINE CLARITY SL CLOUDY; URINE COLOR YELLOW; URINE GLUCOSE-RANDOM* NEGATIVE (Negative); URINE KETONES NEGATIVE (Negative); URINE LEUKOCYTES-REFLEX NEGATIVE (Negative); URINE NITRITE-REFLEX NEGATIVE (Negative); URINE PROTEIN (DIPSTICK) TRACE (Negative)
[2019-04-05 11:22] LABS: ALBUMIN 3.6 g/dL (3.4-5.0); CALCIUM 8.7 mg/dL (8.5-10.1); CREATININE 0.8 mg/dL (0.6-1.0); POTASSIUM 3.7 mmol/L (3.5-5.1); TOTAL BILIRUBIN 0.8 mg/dL (<0.1-1.0); TOTAL PROTEIN 6.9 g/dL (6.4-8.2)
[2019-04-05 11:27] LABS: APTT 38.1 Seconds (24.5-32.8); PROTIME 32.9 Seconds (9.3-11.4)
[2019-04-05 11:34] LABS: INR 3.3
[2019-04-05 11:39] LABS: BACTERIA-REFLEX 1-9 Few /HPF (None Seen); SQUAMOUS 4-10 Moderate /LPF (0-3); URINE RBC 3-10 Few /HPF (0-2); URINE WBC-REFLEX None Seen /HPF (0-5)
[2019-04-05 11:40] LABS: CRYSTALS None Seen /LPF (None Seen); HYALINE CASTS 0-3 Few /LPF (None Seen); TRANSITIONAL EPITHEL CELL 0-3 Few /LPF (None Seen)
[2019-04-13] VITALS (15 sets, daily range): BP systolic 104–126; BP diastolic 54–78
[~2019-04-13] VITALS: Ht 170.2 cm; Wt 64.4 kg
--- NOTE | ~2019-04-13 | EKG ---
[facility] [place] [address] ELECTROCARDIOGRAM REPORT Name: CALLAWAYMARIANELA Levy Room #: 150-2 ADM IN M.R.#: [id number] Admission: 04/13/19 Attend Phys: Naren Pedraza MD Discharge: Date of : 40 Report #: [id number] THIS REPORT FOR: cc: Davonte Ortiz MD, Christopher B. MD Epiphany, Epiphany MD ~ THIS REPORT FOR: //name// [facility] Test Date: 2019-04-13 Test Time: 11:45:29 Pat Name: MARIANELA CALLAWAY Department: Room: 150 2 Gender: F [employer] Specialist: abbie : 1940 Requested By: Naren Pedraza Order Number: [id number] MD: Measurements Intervals [place] Rate: 73 P: DE: QRS: 90 QRSD: 128 T: 90 QT: 434 QTc: 479 Interpretive Statements Atrial fibrillation Nonspecific intraventricular conduction delay Probable anteroseptal infarct, old Compared to ECG 01/25/2019 07:44:03 Intraventricular conduction delay now present Myocardial infarct finding now present Right-axis deviation no longer present [email or web address] By: 1145 1145 Epiphany Epiphany, [place] /MIKALA
[2019-04-13 07:13] LABS: APTT 27.9 Seconds (24.5-32.8); PROTIME 10.5 Seconds (9.3-11.4)
--- NOTE | 2019-04-13 12:49 | NUR ---
1240-received pt via bed from pacu.--vw
--- NOTE | 2019-04-13 17:36 | NUR ---
PT CARE ASSUMED APPROX 1530. ASSESSMENT CHARTED. PT DENIES PAIN AND SOA. PT REQUIRED 1-2L NC WHILE ASLEEP. VS OTHERWISE STABLE. PT LEFT GROIN SITE C/D/I. ASSESSED BY DR CHRISTIANSON TWICE SINCE PT ARRIVED POST OP. WOUND VAC C/D/I. NO DRAINAGE NOTED TO CANNISTER. APPETITE INTACT. PT DENIES QUESTIONS OR CONCERNS REGARDING POC. NO DISTRESS NOTED.
[2019-04-14] VITALS (18 sets, daily range): BP systolic 94–117; BP diastolic 47–74
[2019-04-14 04:28] LABS: CREATININE 0.7 mg/dL (0.6-1.0); POTASSIUM 4.1 mmol/L (3.5-5.1)
[2019-04-14 04:35] LABS: HEMATOCRIT 37.1 % (37.0-47.0); HEMOGLOBIN 12.1 gm/dL (12.0-15.0); MCH 30.6 pg (26.0-34.0); MCHC 32.5 g/dL (28.0-37.0); MCV 94.2 fL (80.0-100.0); RBC 3.94 mil/uL (4.20-5.00); RDW 17.5 % (10.5-14.5); WBC 7.9 thou/uL (4.0-11.0)
--- NOTE | 2019-04-14 06:42 | NUR ---
No complaint of pain. No drainage in the wound vac cannister. Dressing intact. Pt progressing towards goals. Chart check. report given to oncoming RN.
--- NOTE | 2019-04-14 15:01 | NUR ---
chart review, spoke with bedside nurse, pt possible moving out of icu today. pt up in recliner chair. daughter at bedside. pt is a & o x 3, pleasant and able to make her needs know. pt wanted blanket underneath her legs in recliner. bedside nurse assisted her with that. pt reported live in apartment 30 steps to 3 floor with handrails x 2. do not do the stairs take the elevator. manage own medication, was driving vehicle prior to hospital. independent with adl's. no hh or rehab in past."/pt and daughter eugene. will cont following as needed for dc needs.
--- NOTE | 2019-04-14 16:07 | PATH ---
[facility] [address] [place] [address] PATHOLOGY RPT PROCEDURE Name: NILTONMARIANELA S Room #: 247-P ADM IN M.R.#: [id number] Admission: 04/13/19 Date of : 40 Discharge: Report #: [id number] Path Case #: [id number] [facility] Accession Number: [id number] . 01 Material submitted: . artery - LEFT FEMORAL ARTERY PLAQUE. Modifiers: left, femoral . 01 Clinical history: . Peripheral vascular disease, unspecified . 02 Diagnosis: Arterial plaque, left femoral artery, removal: - Calcified atheromatous plaque. . (SKM:mml; 04/14/2019) [facility] 04/14/2019 1327 Local . 02 Electronically signed: . Jacques Arshad MD, Pathologist NPI- [id number] . 01 Gross description: . The specimen is received in formalin, labeled "Marianela Lambert, left femoral artery plaque". Received are multiple segments of pale iverson, moderately calcified plaque measuring 3.0 x 1.8 x 0.6 cm in aggregate dimensions. The specimen is submitted representatively in cassette A1, following light decalcification. (CAA; 04/13/2019) QAC/QAC 04/13/2019 1744 Local . 02 Pathologist provided ICD-10: I70.202 . 02 CPT . 786174, [id number] Specimen Comment: A courtesy copy of this report has been sent to [phone], [phone] Specimen Comment: [phone] Specimen Comment: Report sent to / DR GODOY Performed at: [address], [place] [id number] MD Edward Lindo MD Phone: [phone] Performed at: [address] [id number] MD Monserrat Hebert MD Phone: [phone]
--- NOTE | 2019-04-14 18:00 | NUR ---
PATIENT PROGRESSING TOWARDS OUTCOME GOALS EVIDENT BY UP IN THE CHAIR FOR SEVERALS HOURS. PAIN MANAGED WITH PAIN MANAGEMENT REGIME. GLASS DC'D AND PATIENT VOIDING WITHOUT DIFFICULTY.
[2019-04-15] VITALS (12 sets, daily range): BP systolic 115–131; BP diastolic 62–85
--- NOTE | 2019-04-15 11:47 | NUR ---
PATIENT DISCARGED TO HOME WITH DAUGHTER, WILSON VIA W/C AT 1138. DISCHARGE INSTRUCTIONS AND PREVENA AND WOUND VAC INSTRUCTIONS REVIEWED WITH PATIENT, VERBALIZED UNDERSTANDING.
--- NOTE | 2019-04-18 16:46 | O ---
[facility] [place] [address] OPERATIVE REPORT Name: MARIANELA CALLAWAY Room #: 247-P [facility] IN M.R.#: [id number] Admission: 04/13/19 Attend Phys: Naren Pedraza MD Discharge: 04/15/19 Date of : 40 Report #: [id number] THIS REPORT FOR: cc: Davonte Ortiz MD, Christopher B. MD Forman,Naren Brown MD ~ THIS REPORT FOR: //name// CC: Davonte Pedraza DATE OF SERVICE: 04/13/2019 PREOPERATIVE DIAGNOSIS: Left femoral artery occlusion. POSTOPERATIVE DIAGNOSIS: Left femoral artery occlusion. OPERATION: Left femoral endarterectomy with patch closure. SURGEON: Naren Pedraza MD ANESTHESIA: General. INDICATIONS: The patient is a 79-year-old known to us from stent graft implant for an abdominal and iliac aortic aneurysm. The aneurysm was found to be fine on the one month study, but the left femoral artery appeared occluded and this was consistent with the patient's symptoms of rest pain. FINDINGS AND TECHNIQUE: After general anesthesia was established, an incision was made in the left groin to expose the common deep and superficial femoral artery. A 10,000 units of heparin were given. Exposure of the artery, took more time than typical due to the reoperative nature of the surgery. The femoral arteries were occluded and the arteriotomy was made. The endarterectomy was performed. Tacking sutures were placed at the transition zone and the superficial femoral artery. A good backbleeding from the profunda was ascertained. A thin pericardial patch was used to close the arteriotomy. The entire length of the patch was used (8 cm). Once a fine Prolene with a continuous technique was used to sew in the patch when the patch was complete, flow was reestablished. A good arterial flow was ascertained with the Doppler. Protamine was given to reverse the heparin. Tacking sutures were placed as [facility] [address] [place] [address] OPERATIVE REPORT Name: NILTONKADIMARIANELA Cam Room #: 247-P [facility]#: [id number] Admission: 04/13/19 Attend Phys: Naren Pedraza MD Discharge: 04/15/19 Date of : 40 Report #: [id number] needed for hemostasis. When hemostasis was satisfactory, the wound was closed in layers and a Prevena dressing was applied. The patient was taken to the recovery area in good condition. All counts reported as correct. <ELECTRONICALLY SIGNED> By: Naren Pedraza MD 04/18/19 1646 1057 1112 Naren Pedraza MD /nt
== END 2019-04-15 11:38 | disposition home or self-care (01) | DRG 254 ==
LOC: TBA 05:51 → PRE 08:03 → TBA 10:12 → PRE 13:58 → TBA 14:49 → ICU 15:38 → ENTRNSPT 04-15 11:21 → EDTRNSPTSTS 04-15 11:26 → ICU 04-15 11:38
PROVIDERS: ADMIT Surgery Vascular Surgery
PROC: 04UL0KZ Supplement Left Femoral Artery with Nonautologous Tissue Substitute, Open Approach (ICD-10-PCS; principal; 2019-04-13)
PROC: 04CL0ZZ Extirpation of Matter from Left Femoral Artery, Open Approach (ICD-10-PCS; principal; 2019-04-13)
DX: I70.202 Unspecified atherosclerosis of native arteries of extremities, left leg (principal); Z88.8 Allergy status to other drugs, medicaments and biological substances; Z79.899 Other long term (current) drug therapy; I25.10 Atherosclerotic heart disease of native coronary artery without angina pectoris; I48.91 Unspecified atrial fibrillation; E78.00 Pure hypercholesterolemia, unspecified; Z98.49 Cataract extraction status, unspecified eye; Z90.49 Acquired absence of other specified parts of digestive tract; Z90.710 Acquired absence of both cervix and uterus
CPT/HCPCS: 10078; 50010; 50101; 50386; 50455; 50953; 51751; 52279; 56524; 56526; 56528; 56531; 56534; 56668; 56760; 57092; 57093; 62110; 62900; 70005

== ENCOUNTER → 2019-07-30 | Outpatient (CLI) | payer OTHER | LOC: SJCVC 09:47 | DX: R94.31 Abnormal electrocardiogram [ECG] [EKG] (principal); I44.39 Other atrioventricular block; I48.21 Permanent atrial fibrillation; I25.10 Atherosclerotic heart disease of native coronary artery without angina pectoris; I10 Essential (primary) hypertension; Q21.1 Atrial septal defect; I72.3 Aneurysm of iliac artery; E78.5 Hyperlipidemia, unspecified; Z79.01 Long term (current) use of anticoagulants; Z79.899 Other long term (current) drug therapy; Z87.891 Personal history of nicotine dependence ==

== ENCOUNTER → 2020-01-31 | Outpatient (CLI) | payer OTHER | LOC: SJCVC 13:00 | PROVIDERS: ATTEND Internal Medicine | DX: R94.31 Abnormal electrocardiogram [ECG] [EKG] (principal); I25.10 Atherosclerotic heart disease of native coronary artery without angina pectoris; I48.21 Permanent atrial fibrillation; E78.5 Hyperlipidemia, unspecified; I10 Essential (primary) hypertension; I72.3 Aneurysm of iliac artery; J44.9 Chronic obstructive pulmonary disease, unspecified; Z79.82 Long term (current) use of aspirin; Z79.01 Long term (current) use of anticoagulants; Z79.899 Other long term (current) drug therapy; Z87.891 Personal history of nicotine dependence ==

== ENCOUNTER → 2020-01-31 | Outpatient (CLI) | payer OTHER | LOC: HYPER 14:50 | PROVIDERS: ATTEND Emergency Medicine | DX: L02.818 Cutaneous abscess of other sites (principal); L98.492 Non-pressure chronic ulcer of skin of other sites with fat layer exposed; R60.0 Localized edema; E78.5 Hyperlipidemia, unspecified; I48.91 Unspecified atrial fibrillation; I10 Essential (primary) hypertension; I73.9 Peripheral vascular disease, unspecified; J44.9 Chronic obstructive pulmonary disease, unspecified; F17.200 Nicotine dependence, unspecified, uncomplicated; Z79.01 Long term (current) use of anticoagulants; Z98.49 Cataract extraction status, unspecified eye; Z90.49 Acquired absence of other specified parts of digestive tract; Z90.710 Acquired absence of both cervix and uterus ==

== ENCOUNTER → 2020-02-08 | Outpatient (CLI) | payer OTHER | LOC: HYPER 09:36 | PROVIDERS: ATTEND Emergency Medicine | DX: L02.818 Cutaneous abscess of other sites (principal); L98.492 Non-pressure chronic ulcer of skin of other sites with fat layer exposed; R60.0 Localized edema; E78.5 Hyperlipidemia, unspecified; I48.91 Unspecified atrial fibrillation; I10 Essential (primary) hypertension; I73.9 Peripheral vascular disease, unspecified; J44.9 Chronic obstructive pulmonary disease, unspecified; F17.200 Nicotine dependence, unspecified, uncomplicated; Z79.01 Long term (current) use of anticoagulants; Z98.49 Cataract extraction status, unspecified eye; Z90.49 Acquired absence of other specified parts of digestive tract; Z90.710 Acquired absence of both cervix and uterus ==

== ENCOUNTER → 2020-08-17 | Outpatient (CLI) | payer OTHER | LOC: SJCVC 10:29 | PROVIDERS: ATTEND Internal Medicine | DX: R94.31 Abnormal electrocardiogram [ECG] [EKG] (principal); I48.21 Permanent atrial fibrillation; I25.10 Atherosclerotic heart disease of native coronary artery without angina pectoris; E78.5 Hyperlipidemia, unspecified; I10 Essential (primary) hypertension; Q21.1 Atrial septal defect; I72.3 Aneurysm of iliac artery; J44.9 Chronic obstructive pulmonary disease, unspecified; I73.9 Peripheral vascular disease, unspecified; E78.00 Pure hypercholesterolemia, unspecified; Z95.820 Peripheral vascular angioplasty status with implants and grafts; Z90.49 Acquired absence of other specified parts of digestive tract; Z90.710 Acquired absence of both cervix and uterus; Z79.82 Long term (current) use of aspirin; Z79.01 Long term (current) use of anticoagulants; Z79.899 Other long term (current) drug therapy; Z87.891 Personal history of nicotine dependence ==

== ENCOUNTER → 2021-02-16 | Outpatient (CLI) | payer OTHER | LOC: SJCVC 11:06 | PROVIDERS: ATTEND Internal Medicine | DX: Z51.81 Encounter for therapeutic drug level monitoring (principal); I48.21 Permanent atrial fibrillation; E78.5 Hyperlipidemia, unspecified; I25.10 Atherosclerotic heart disease of native coronary artery without angina pectoris; I10 Essential (primary) hypertension; R94.31 Abnormal electrocardiogram [ECG] [EKG]; Q21.1 Atrial septal defect; I72.3 Aneurysm of iliac artery; J44.9 Chronic obstructive pulmonary disease, unspecified; E78.00 Pure hypercholesterolemia, unspecified; Z79.82 Long term (current) use of aspirin; Z79.01 Long term (current) use of anticoagulants; Z79.899 Other long term (current) drug therapy; F17.210 Nicotine dependence, cigarettes, uncomplicated ==